=== PATIENT | male | born 1965 | race Caucasian/White ===

== ENCOUNTER 2023-04-11 21:47 | Observation (INO) ==
[2023-04-11] MEDS ORDERED: LORazepam 2 mg VIAL 1 ml IV PUSH ONE (22:35)
[2023-04-11] MEDS ORDERED: Lorazepam PYXIS KEY PRN (22:35)
[2023-04-11] MEDS ORDERED: Valproic Acid IV 100 MG/ML 5 ML VIAL (500 MG) IVPB ONE (22:42)
[2023-04-11 22:55] LABS: Hematocrit 41.8 % (38-53); Hemoglobin 14.2 g/dL (13.2-16.3); Mean Corpuscular Hemoglobin 31.6 pg (27-33); Mean Corpuscular Hgb Conc 34.1 g/dL (31-36); Mean Corpuscular Volume 92.6 fL (80-97); Mean Platelet Volume 7.9 fL (7.5-11.2); Platelet Count 247 10^3/uL (150-450); Red Blood Count 4.51 10^6/uL (4.06-5.63); Red Cell Distribution Width 13.4 % (12-17); White Blood Count 13.5 10^3/uL (3.6-10.2)
[2023-04-11] MEDS ORDERED: VALPROIC ACID 500 MG IV - ED ONCE IVPB ONE (23:00)
[2023-04-11 23:11] LABS: Albumin 4.1 g/dL (3.2-5.2); Albumin/Globulin Ratio 1.6 (1-3); Calcium 8.7 mg/dL (8.6-10.3); Creatinine, Serum 1.18 mg/dL (0.67-1.17); Globulin 2.5 g/dL (2-4); Potassium 3.7 mmol/L (3.5-5.0); Total Bilirubin 0.4 mg/dL (0.2-1.0); Total Protein 6.6 g/dL (6.4-8.9); eGFR CKD-EPI 70.6 (>60)
[2023-04-11 23:21] LABS: ABS Basophils 0.1 10^3/uL (0.0-0.1); ABS Lymphocytes 2.7 10^3/uL (1.0-4.8); ABS Monocytes 1.7 10^3/uL (0.0-1.1); ABS Neutrophils 9.1 10^3/uL (1.5-7.6); ABS Nucleated RBC 0.01 10^3/ul; Lymphocyte % 20.1 %; Nucleated Red Blood Cells % 0.1 /100 WBC (0.0-0.4)
[2023-04-11 23:41] LABS: Urine Appearance Clear; Urine Bilirubin Negative (Negative); Urine Blood Negative (Negative); Urine Color Yellow; Urine Glucose Negative (Negative); Urine Ketones Negative (Negative); Urine Nitrite Negative (Negative); Urine Protein Negative (Negative); Urine Specific Gravity 1.028 (1.002-1.030); Urine Urobilinogen Negative (Negative)
[2023-04-11 23:54] LABS: Magnesium 1.9 mg/dL (1.9-2.7)
[2023-04-11 23:55] LABS: Urine Benzodiazepine Screen None Detected (None Detect); Urine Cannabinoids Screen Presumptive Positive (None Detect); Urine Opiates Screen None Detected (None Detect)
[2023-04-11] MEDS ORDERED: Magnesium Sulfate 2 gm BAG 2 GM/50 ML BAG IVPB ONE (23:59)
[2023-04-12] MEDS ORDERED: NS 0.9% 1000 ml BAG 1,000 ML IV ONE (00:32)
[2023-04-12] MEDS ORDERED: LORazepam 2 mg VIAL 1 ml IV PUSH PRN (00:48)
[2023-04-12] MEDS ORDERED: Lorazepam PYXIS KEY PRN (00:48)
[2023-04-12 04:20] LABS: ABS Basophils 0.1 10^3/uL (0.0-0.1); ABS Lymphocytes 2.3 10^3/uL (1.0-4.8); ABS Monocytes 0.9 10^3/uL (0.0-1.1); ABS Nucleated RBC 0.02 10^3/ul; Eosinophil % 0.2 %; Hematocrit 40.1 % (38-53); Hemoglobin 13.9 g/dL (13.2-16.3); Lymphocyte % 22.8 %; Mean Corpuscular Hemoglobin 31.5 pg (27-33); Mean Corpuscular Hgb Conc 34.7 g/dL (31-36); Mean Corpuscular Volume 90.7 fL (80-97); Mean Platelet Volume 7.6 fL (7.5-11.2); Nucleated Red Blood Cells % 0.2 /100 WBC (0.0-0.4); Platelet Count 226 10^3/uL (150-450); Red Blood Count 4.42 10^6/uL (4.06-5.63); Red Cell Distribution Width 13.1 % (12-17); White Blood Count 10.3 10^3/uL (3.6-10.2)
[2023-04-12 04:36] LABS: Calcium 8.2 mg/dL (8.6-10.3); Creatinine, Serum 1.04 mg/dL (0.67-1.17); Magnesium 2.5 mg/dL (1.9-2.7); Potassium 4.1 mmol/L (3.5-5.0); eGFR CKD-EPI 82.2 (>60)
[2023-04-12 13:38] VITALS: BP 119/76
== END 2023-04-12 17:00 | disposition home or self-care (01) ==
LOC: EDHOLD 21:47 → ED 21:47 → SUATTDRO 23:33 → MED 04-12 01:57
PROVIDERS: ADMIT Student in an Organized Health Care Education/Training Program; ATTEND Internal Medicine